=== PATIENT | male | born 1985 | race Caucasian/White ===

== ENCOUNTER 2018-01-09 17:30 | Emergency (ER) | payer OTHER ==
[2018-01-09] MEDS ORDERED: DIAZEPAM 5 MG TABLET ONE ×2 (18:44→18:53)
[2018-01-09] MEDS ORDERED: DEXAMETHASONE 10 MG/ML VIAL ONE ×2 (18:44→18:53)
[2018-01-09] MEDS ORDERED: NA CHLORIDE 0.9% 1,000 ML ONE (18:45)
[2018-01-09] MEDS ORDERED: KETOROLAC 30 MG/ML INJ ONE (18:45)
[2018-01-09] MEDS ORDERED: ONDANSETRON 4 MG/2 ML VIAL ONE (18:45)
[2018-01-09] MEDS ORDERED: MORPHINE 4 MG/ML SYR ONE (18:45)
[2018-01-09 19:01] LABS: Absolute Lymphocytes (CBC) 2.9 K/uL (0.7-4.9); Absolute Monocytes 0.9 K/uL (0.1-1.3); Absolute Neutrophil 5.6 K/uL (1.8-8.0); Basophils % 0.7 % (0-1.3); Eosinophils % 4.6 % (0-4.4); Hematocrit 45.3 % (39.6-49.0); Lymphocytes % 29.1 % (15.3-44.8); MCH 30.7 pg (27.0-35.0); MCV 87.9 fL (80-100); MPV 9.9 fL (7.6-11.3); Monocytes % 8.7 % (3.3-12.3); RBC Red Blood Cell Count 5.15 M/uL (4.33-5.43)
--- NOTE | 2018-01-09 19:21 | RAD REPORT ---
EXAM DESCRIPTION: CT - Spine Lumbar Wo Con - 01/09/2018 7:10 pm CLINICAL HISTORY: Radiculopathy. PAIN COMPARISON: No comparisons TECHNIQUE: Axial noncontrast CT imaging of the lumbar spine was performed with coronal and sagittal re-formatted images. All CT scans are performed using dose optimization technique as appropriate and may include automated exposure control or mA/KV adjustment according to patient size. FINDINGS: No acute lumbar spine fracture seen. No aggressive marrow pattern or malalignment. Paraspinal tissues are normal in thickness. No paraspinal abscess or hematoma seen. Intervertebral disc disease assessment is inherently limited by CT. Within these limitations, no high -grade canal stenosis suspected. Mild bulging of disc material is suspected at the lower lumbar level s. IMPRESSION: No acute lumbar spine abnormality. Consider MRI follow-up for assessment of disc disease if clinically desired.
--- NOTE | 2018-01-09 19:23 | EDPHYS ---
Physician Documentation [facility] Name: Laureano Dunne Age: 32 yrs Sex: Male : 1985 Arrival Date: 01/09/2018 Time: 17:39 Bed 6 Private MD: None, None ED Physician Cullen Aviles HPI: 01/09 18:14 This 32 yrs old Male presents to ER via Ambulatory with complaints of Back natalie Pain. 18:14 The patient presents with pain that is acute. The symptoms are located in the lumbar natalie area, left low back, left mid back, right mid back and right low back. Onset: The symptoms/episode began/occurred 2 day(s) ago. The pain does not radiate. Associated signs and symptoms: The patient has no apparent associated signs or symptoms. Modifying factors: The patient symptoms are alleviated by remaining still, the patient symptoms are aggravated by bending. Severity of symptoms: At their worst the symptoms were moderate, in the emergency department the symptoms are unchanged. Historical: - Allergies: 17:59 No Known Allergies; aj - Home Meds: 17:59 None [Active]; aj - PMHx: 17:59 Back pain; aj - PSHx: 17:59 None; aj - Immunization history:: Adult Immunizations up to date. - Social history:: Smoking status: Patient/guardian denies using tobacco. - Ebola Screening: : Patient negative for fever greater than or equal to 101.5 degrees Fahrenheit, and additional compatible Ebola Virus Disease symptoms Patient denies exposure to infectious person Patient denies travel to an Ebola-affected area in the 21 days before illness onset No symptoms or risks identified at this time. - Family history:: not pertinent. ROS: 18:14 Constitutional: Negative for fever, chills, and weight loss, Eyes: Negative for injury, natalie pain, redness, and discharge, ENT: Negative for injury, pain, and discharge, Neck: Negative for injury, pain, and swelling, Cardiovascular: Negative for chest pain, palpitations, and edema, Respiratory: Negative for shortness of breath, cough, wheezing, and pleuritic chest pain, Abdomen/GI: Negative for abdominal pain, nausea, vomiting, diarrhea, and constipation, : Negative for injury, bleeding, discharge, and swelling, MS/Extremity: Negative for injury and deformity, Skin: Negative for injury, rash, and discoloration, Neuro: Negative for headache, weakness, numbness, tingling, and seizure, Psych: Negative for depression, anxiety, suicide ideation, homicidal ideation, and hallucinations, Allergy/Immunology: Negative for hives, rash, and allergies, Endocrine: Negative for neck swelling, polydipsia, polyuria, polyphagia, and marked weight changes, Hematologic/Lymphatic: Negative for swollen nodes, abnormal bleeding, and unusual bruising. 18:14 Back: Positive for decreased range of motion, pain with movement, of the lumbar area, left low back, left mid back, right mid back and right low back. Exam: 18:14 Constitutional: This is a well developed, well nourished patient who is awake, alert, natalie and in no acute distress. Head/Face: Normocephalic, atraumatic. Eyes: Pupils equal round and reactive to light, extra-ocular motions intact. Lids and lashes normal. Conjunctiva and sclera are non-icteric and not injected. Cornea within normal limits. Periorbital areas with no swelling, redness, or edema. ENT: Nares patent. No nasal discharge, no septal abnormalities noted. Tympanic membranes are normal and external auditory canals are clear. Oropharynx with no redness, swelling, or masses, exudates, or evidence of obstruction, uvula midline. Mucous membranes moist. Neck: Trachea midline, no thyromegaly or masses palpated, and no cervical lymphadenopathy. Supple, full range of motion without nuchal rigidity, or vertebral point tenderness. No Meningismus. Chest/axilla: Normal chest wall appearance and motion. Nontender with no deformity. No lesions are appreciated. Cardiovascular: Regular rate and rhythm with a normal S1 and S2. No gallops, murmurs, or rubs. Normal PMI, no JVD. No pulse deficits. Respiratory: Lungs have equal breath sounds bilaterally, clear to auscultation and percussion. No rales, rhonchi or wheezes noted. No increased work of breathing, no retractions or nasal flaring. Abdomen/GI: Soft, non-tender, with normal bowel sounds. No distension or tympany. No guarding or rebound. No evidence of tenderness throughout. Male : Normal genitalia with no discharge or lesions. Skin: Warm, dry with normal turgor. Normal color with no rashes, no lesions, and no evidence of cellulitis. MS/ Extremity: Pulses equal, no cyanosis. Neurovascular intact. Full, normal range of motion. Neuro: Awake and alert, GCS 15, oriented to person, place, time, and situation. Cranial nerves II-XII grossly intact. Motor strength 5/5 in all extremities. Sensory grossly intact. Cerebellar exam normal. Normal gait. Psych: Awake, alert, with orientation to person, place and time. Behavior, mood, and affect are within normal limits. 18:14 Back: pain, that is mild, ROM is painful, normal spinal alignment noted, CVA tenderness, is absent, muscle spasm, is appreciated in the left low back, left mid back, right mid back and right low back. Vital Signs: 17:59 BP 132 / 93; Pulse 79; Resp 18; Temp 98.1; Pulse Ox 95% on R/A; Weight 108.86 kg; aj Height 5 ft. 9 in. (175.26 cm); 17:59 Body Mass Index 35.44 (108.86 kg, 175.26 cm) MDM: 18:02 Patient medically screened. [facility] 18:48 Data reviewed: vital signs, nurses notes, lab test result(s), radiologic studies, CT natalie scan. 01/09 18:14 Order name: CBC with Diff; Complete Time: 19:08 [facility] 01/09 18:14 Order name: Comprehensive Metabolic Panel [facility] 01/09 18:14 Order name: CT Lumbar Spine Wo Con; Complete Time: 19:21 [facility] 01/09 18:54 Order name: Urine Dipstick--Ancillary (enter results) bd Administered Medications: 18:45 Drug: NS 0.9% 1000 ml Route: IV; Rate: 1 bolus; Site: right antecubital; sv 19:42 Follow up: IV Status: Completed infusion rv 18:45 Drug: Zofran 4 mg Route: IVP; Site: right antecubital; sv 18:47 Drug: morphine 4 mg Route: IVP; Site: right antecubital; sv 19:41 Follow up: Response: Pain is decreased rv 18:49 Drug: Decadron - Dexamethasone 10 mg Route: IVP; Site: right antecubital; sv 19:41 Follow up: Response: No adverse reaction; Pain is decreased rv 18:50 Drug: Valium 5 mg Route: PO; sv 19:41 Follow up: Response: No adverse reaction rv 18:51 Drug: TORadol 30 mg Route: IVP; Site: right antecubital; sv 19:41 Follow up: Response: No adverse reaction; Pain is decreased rv Disposition: 01/09/18 19:23 Discharged to Home. Impression: Low back pain, Sciatica. - Condition is Stable. - Discharge Instructions: Back Pain, Adult, Chronic Back Pain, Musculoskeletal Pain, Back Injury Prevention, [id number], Back Pain, Adult, [id number]. - Prescriptions for Ibuprofen 600 mg Oral Tablet - take 1 tablet by ORAL route every 6 hours As needed take with food; 30 tablet. Tylenol- Codeine #3 300-30 mg Oral Tablet - take 2 tablet by ORAL route every 6 hours As needed; 30 tablet. Valium 5 mg Oral Tablet - take 1 tablet by ORAL route every 8 hours As needed; 20 tablet. Medrol (Alvarado) 4 mg Oral Tablets, Dose Pack - take 1 tablet by ORAL route as directed - follow package instructions; 1 packet. - Medication Reconciliation Form, Thank You Letter, Antibiotic Education, Prescription Opioid Use form. - Follow up: Private Physician; When: 2 - 3 days; Reason: Recheck today's complaints, Continuance of care, Re-evaluation by your physician. Follow up: James Granger; When: 2 - 3 days; Reason: Recheck today's complaints, Re-evaluation by your physician. - Problem is new. - Symptoms have improved. Signatures: Dispatcher [employer] Nicole Mason RN RN sv Myers, Amanda, RN RN aj Anderson, Corey, MD MD cha Vicente, Ronaldo, RN RN rv Corrections: (The following items were deleted from the chart) 19:42 19:23 01/09/2018 19:23 Discharged to Home. Impression: Low back pain; Sciatica. rv Condition is Stable. Discharge Instructions: Back Pain, Adult, Chronic Back Pain, Musculoskeletal Pain, Back Injury Prevention, Mhej-[id number], Back Pain, Adult, [id number]. Prescriptions for Ibuprofen 600 mg Oral Tablet - take 1 tablet by ORAL route every 6 hours As needed take with food; 30 tablet, Tylenol-Codeine #3 300-30 mg Oral Tablet - take 2 tablet by ORAL route every 6 hours As needed; 30 tablet, Valium 5 mg Oral Tablet - take 1 tablet by ORAL route every 8 hours As needed; 20 tablet, Medrol (Alvarado) 4 mg Oral Tablets, Dose Pack - take 1 tablet by ORAL route as directed - follow package instructions; 1 packet. and Forms are Medication Reconciliation Form, Thank You Letter, Antibiotic Education, Prescription Opioid Use. Follow up: Private Physician; When: 2 - 3 days; Reason: Recheck today's complaints, Continuance of care, Re-evaluation by your physician. Follow up: James Granger; When: 2 - 3 days; Reason: Recheck today's complaints, Re-evaluation by your physician. Problem is new. Symptoms have improved. natalie
--- NOTE | 2018-01-09 19:23 | ER ---
Nurse's Notes [facility] Name: Laureano Dunne Age: 32 yrs Sex: Male : 1985 Arrival Date: 01/09/2018 Time: 17:39 Bed 6 Private MD: None, None Diagnosis: Low back pain;Sciatica Presentation: 01/09 17:58 Presenting complaint: Patient states: Low back pain for 1 week, HX of chronic back aj pain. Transition of care: patient was not received from another setting of care. Onset of symptoms was January 02, 2018. Risk Assessment: Do you want to hurt yourself or someone else? Patient reports no desire to harm self or others. Initial Sepsis Screen: Does the patient meet any 2 criteria? No. Patient's initial sepsis screen is negative. Does the patient have a suspected source of infection? No. Patient's initial sepsis screen is negative. Care prior to arrival: None. 17:58 Method Of Arrival: Ambulatory aj 17:58 Acuity: JOHN 4 aj Triage Assessment: 17:59 General: Appears in no apparent distress. comfortable, Behavior is calm, cooperative, aj appropriate for age. Pain: Complains of pain in low back area and mid back area. Neuro: Level of Consciousness is awake, alert, obeys commands, Oriented to person, place, time, situation, Appropriate for age. Respiratory: Airway is patent Respiratory effort is even, unlabored, Respiratory pattern is regular, symmetrical. Derm: Skin is intact, is healthy with good turgor, Skin is pink, warm \T\ dry. normal. Musculoskeletal: Circulation, motion, and sensation intact. Range of motion: intact in all extremities, Reports pain in low back area and mid back area. Historical: - Allergies: 17:59 No Known Allergies; aj - Home Meds: 17:59 None [Active]; aj - PMHx: 17:59 Back pain; aj - PSHx: 17:59 None; aj - Immunization history:: Adult Immunizations up to date. - Social history:: Smoking status: Patient/guardian denies using tobacco. - Ebola Screening: : Patient negative for fever greater than or equal to 101.5 degrees Fahrenheit, and additional compatible Ebola Virus Disease symptoms Patient denies exposure to infectious person Patient denies travel to an Ebola-affected area in the 21 days before illness onset No symptoms or risks identified at this time. - Family history:: not pertinent. Screenin:45 Abuse screen: Denies threats or abuse. Denies injuries from another. Nutritional sv screening: No deficits noted. Tuberculosis screening: No symptoms or risk factors identified. Fall Risk None identified. Vital Signs: 17:59 BP 132 / 93; Pulse 79; Resp 18; Temp 98.1; Pulse Ox 95% on R/A; Weight 108.86 kg; aj Height 5 ft. 9 in. (175.26 cm); 17:59 Body Mass Index 35.44 (108.86 kg, 175.26 cm) ED Course: 17:39 Patient arrived in ED. sb2 17:39 None, None is Private Physician. sb2 17:58 Triage completed. aj 17:59 Arm band placed on left wrist. Patient placed in an exam room, on a stretcher. aj 18:02 Cullen Aviles MD is Attending Physician. natalie 18:21 Patient moved to HI via wheelchair. vm2 18:30 Inserted saline lock: 22 gauge in right forearm, using aseptic technique. Blood jp3 collected. 18:40 Initial lab(s) drawn, by mn, sent to lab. Urine collected: clean catch specimen, clear, jp3 javier colored. 18:45 Patient has correct armband on for positive identification. Bed in low position. Call sv light in reach. Side rails up X2. Door closed. 19:11 CT Lumbar Spine Wo Con In Process Unspecified. EDMS 19:12 Freddy Lord, RN is Primary Nurse. bp 19:19 CT completed. Patient tolerated procedure well. Patient moved back from HI. wv 19:22 James Granger MD is Referral Physician. natalie 19:39 No provider procedures requiring assistance completed. IV discontinued, bleeding rv controlled, No redness/swelling at site. Pressure dressing applied. Administered Medications: 18:45 Drug: NS 0.9% 1000 ml Route: IV; Rate: 1 bolus; Site: right antecubital; sv 19:42 Follow up: IV Status: Completed infusion rv 18:45 Drug: Zofran 4 mg Route: IVP; Site: right antecubital; sv 18:47 Drug: morphine 4 mg Route: IVP; Site: right antecubital; sv 19:41 Follow up: Response: Pain is decreased rv 18:49 Drug: Decadron - Dexamethasone 10 mg Route: IVP; Site: right antecubital; sv 19:41 Follow up: Response: No adverse reaction; Pain is decreased rv 18:50 Drug: Valium 5 mg Route: PO; sv 19:41 Follow up: Response: No adverse reaction rv 18:51 Drug: TORadol 30 mg Route: IVP; Site: right antecubital; sv 19:41 Follow up: Response: No adverse reaction; Pain is decreased rv Outcome: 19:23 Discharge ordered by MD. estrada 19:40 Discharged to home ambulatory. rv 19:40 Condition: improved 19:40 Discharge instructions given to patient, Instructed on discharge instructions, medication usage. 19:42 Patient left the ED. rv Signatures: Dispatcher [employer] EDNicole Dooley RN RN sv Myers, Amanda, RN RN aj Anderson, Corey, MD MD cha Jordan, Nathan nj McGuire, Victoria 2 Freddy Lord RN RN bp Billeau, Sheri 2 Nathanael Hernandez RN RN Trey Nair jp3
[2018-01-09 19:50] LABS: ALT/SGPT 58 U/L (12-78); AST/SGOT 29 U/L (15-37); Albumin 3.8 g/dL (3.4-5.0); Alkaline Phosphatase 80 U/L (45-117); BUN Blood Urea Nitrogen 16 mg/dL (7-18); Bicarbonate 25 mmol/L (21-32); Bilirubin Total 0.6 mg/dL (0.2-1.0); Glucose Level 84 mg/dL (74-106); Potassium 3.4 mmol/L (3.5-5.1); Protein, Total 7.6 g/dL (6.4-8.2); Sodium Level 136 mmol/L (136-145)
[2018-01-09 22:17] LABS: Urine Blood NEGATIVE (NEG); Urine Glucose NEGATIVE (NEG); Urine Protein TRACE (NEG); Urine Specific Gravity >1.030 (1.005-1.030); Urine pH 5.5 (5.0-7.0)
== END 2018-01-09 19:42 | disposition home or self-care (01) ==
LOC: ER 17:30
DX: M54.30 Sciatica, unspecified side (principal)
CPT/HCPCS: 36415; 72131; 80053; 81003; 82962; 85025; 96361; 96374; 96375; 99284; J1100; J2405; J7030